=== PATIENT | male | born 1945 | race Caucasian/White ===

== ENCOUNTER 2017-03-14 00:16 | Day surgery (SDC) | payer MEDICARE ==
[~2017-03-14] VITALS: Ht 177.8 cm; Wt 118.0 kg
[2017-03-14] VITALS (15 sets, daily range): BP systolic 109–167; BP diastolic 79–107; PULSE 62–83; RESP 16; O2SAT 95–97
[~2017-03-14 00:16] MED LIST: ASA/1TAB6 PO; ATEN50TA PO; CHOL200047 PO; CYAN50TA2 PO; GABA-502 PO; HYDR25TA4 PO; MULT1CAP33 PO; OXYC-466 PO; PARO20TA5 PO; RANI150C4 PO; SIMV40TA5 PO; UBID1CAP52 PO
[2017-03-14] MEDS ORDERED: LISI-567 PO (13:36)
[2017-03-14] MEDS ORDERED: Atropine 1 mg/10 mL (Code) Syringe ONE (13:57)
--- NOTE | 2017-03-14 14:59 | NUR ---
Pt discharged to home, ambulatory, VSS, IV discontinued. Pt given all discharge instructions and had no further questions at time of d/c.
--- NOTE | 2017-03-14 15:27 | OUT PROC ---
[address] [address] PROCEDURE NOTE PATIENT: IRENE WILLINGHAM : 1945 MR#: [id number] ADMIT: 03/14/2017 JOB ID: [id number] DATE OF PROCEDURE: 03/14/2017 TILT TABLE TEST: INDICATION: Orthostatic dizziness. CONSENT: Informed consent was obtained from the patient after explaining benefits and the risks, which include, but are not limited to risk of significant bradycardia, blood pressure drop, asystole, tachycardia, , etc. ASSOCIATE PROFESSOR OF SOCIOLOGY: Lilian Gomez MD. PROCEDURE: The patient underwent tilt table testing as per standard protocol. He was monitored constantly with blood pressure recording, EKG monitoring, pulse oximetry monitoring. His baseline supine blood pressure was 158/96, with heart rate 62, respiratory rate 16, oxygen saturation 96% on room air. Within 30 minutes of standing posture from supine, blood pressure decreased to 131/84, heart rate went up to 74. Oxygen saturation remained 96%. Baseline rhythm was sinus. There were no significant arrhythmias. Then, through the test, blood pressure remained stable, as low as 115/85 and as low as 109/84. There was no significant tachycardia. There were no significant bradyarrhythmias or pauses or asystole. The patient was not symptomatic. He was not dizzy. No nausea, vomiting, sweating, or chest pain, syncope, etc. There was no immediate complication. He tolerated the procedure well. CONCLUSION: Tilt-table test showed orthostatic blood pressure dropped without any significant tachycardia or bradycardia or postural orthostatic tachycardia or vasovagal syncope or asystole. Patient remained asymptomatic during tilt table testing.
== END 2017-03-14 23:59 | disposition home or self-care (01) ==
LOC: SOUO 00:16
PROVIDERS: ATTEND Internal Medicine Cardiovascular Disease
DX: R42 Dizziness and giddiness (principal); I45.2 Bifascicular block; I10 Essential (primary) hypertension